=== PATIENT | male | born 1950 | race Caucasian/White ===

== ENCOUNTER 2023-06-23 07:16 | Outpatient (CLI) | payer BC, SELFPAY ==
--- NOTE | ~2023-06-23 | CT_ITS ---
EXAMINATION: CT pelvis wo con DATE: 06/23/2023 07:45 INDICATION: Erectile dysfunction TECHNIQUE: Computed tomography (CT) of the pelvis was performed without intravenous contrast. The dos e-length product was 860.29 mGy-cm. Automated exposure control and iterative reconstruction technique were employed. COMPARISON: CT dated 06/18/2017 FINDINGS: There is mild mesenteric stranding of the upper abdomen, nonspecific. There are changes of previous ventral abdominal wall hernia repair. There is a penile prosthetic device present within the pop in the right inguinal region. There is a left spigelian hernia containing fat. Colonic diverticu losis without evidence for diverticulitis. No significant vascular abnormality. No lymphadenopathy. N o abnormal pelvic masses or fluid collections. There is moderate osteoarthritis of the hips. IMPRESSION: 1. Interval placement of penile prosthetic device. Prosthetic pump present in the right inguinal leon on. 2: Left lower abdominal wall spigelian hernia containing fat. Reviewed, dictated and finalized at location A. IMPRESSION: 1. Interval placement of penile prosthetic device. Prosthetic pump present in t he right inguinal region. 2: Left lower abdominal wall spigelian hernia containing fat.
== END 2023-06-23 07:17 | disposition home or self-care (01) ==
PROVIDERS: PCP Family Medicine; Visit Provider Urology
DX: N52.31 Erectile dysfunction following radical prostatectomy (principal)
CPT/HCPCS: 72192

== ENCOUNTER 2023-09-01 08:10 | Outpatient (CLI) | payer BC, SELFPAY ==
--- NOTE | 2023-09-01 08:27 | ECG_ITS ---
Measurements Intervals [place] Rate: 73 P: 1 ME: 165 QRS: -25 QRSD: 99 T: 18 QT: 363 QTc: 402 Interpretive Statements SINUS RHYTHM BORDERLINE LEFT AXIS DEVIATION [QRS AXIS < -20] NO PREVIOUS ECG AVAILABLE FOR COMPARISON Electronically Signed On 09-01-2023 12:36:06 CDT by Amira Chaves M.D.
== END 2023-09-01 08:11 | disposition home or self-care (01) ==
LOC: ANHSURGERY 08:16
PROVIDERS: PCP Family Medicine; Visit Provider Urology
DX: T83.420A Displacement of implanted penile prosthesis, initial encounter (principal); E78.00 Pure hypercholesterolemia, unspecified; Z01.818 Encounter for other preprocedural examination
CPT/HCPCS: 87086; 93005

== ENCOUNTER 2023-09-09 16:44 | Observation (INO) | payer BC, SELFPAY ==
[2023-08-28 14:37] VITALS: BMI 37.0
--- NOTE | 2023-08-28 15:12 | PC.NURSE ---
Report to the Outpatient Waiting Room, entrance under the green pavilion located off [facility], at time __10:00AM on date ___09/09/23____. Planned Procedure Time: ___12:00PM . Time changes happen often and if your time is changed the preop area will call you the afternoon before. - You and your visitor will be asked to self-screen and do not enter if you have any COVID symptoms. - A mask is optional within the hospital at this time. Patients may have clear liquids (water, carbonated beverages, clear teas, apple juice) until 3 hours prior to surgery with a maximum of 20 ounces. - No food from midnight until time of surgery. Take the following medications with a SIP of water the morning of surgery: ____CLONAZEPAM, DULOXETINE, GABAPENTIN, ROPINIROLE, ALBUTEROL INHALER NEEDED DO NOT STOP ANY OF YOUR OTHER PRESCRIPTION MEDICATIONS PRIOR TO SURGERY ?EXCEPT THE FOLLOWING Medications to discontinue per physician __HOLD PLAVIX PER DR ESCOBAR-PATIENT CONFIRMING WITH OFFICE. HOLD ALL VITAMINS/SUPPLEMENTS 3 DAYS PRE-OP PER ANESTHESIA- LAST DOSE 09/05/23. Please no make-up, nail cape verdean, hairspray, perfume, deodorant, or body powder the day of surgery. No jewelry (including any body piercings) or valuables the day of surgery, leave them at home. Please take a shower or bath the night before, or the morning of, surgery with an antibacterial soap. Wear comfortable, loose fitting clothing. - Jewelry must be removed prior to entering the operating room. Rings and piercings that are not removed may be cut off. - The hospital will not accept responsibility for valuables. - Please leave all valuables, including medications, at home the day of surgery. If you are going home after surgery, a licensed limo driver must drive you home. - NO public transportation without another adult if you receive anesthesia. - We recommend that an adult stay with you for 24 hours following discharge. - We also recommend that you do not drive, make important decision, drink alcoholic beverages, or take any drugs that were not prescribed by your health care provider for at least 24 hours after your discharge time. Follow any additional instructions given to you from your surgeon. If you or anyone in your household have experienced Covid symptoms in the past week, please notify your surgeon or the nurse liaison at the phone number below for possible testing. Telephone instructions given to __PATIENT and asked if any additional questions and then verbalized understanding. Patient advised to call surgeon office or pre surgery nurse liaison [phone] if any additional questions.
--- NOTE | 2023-09-08 14:22 | WPDANESEPPF ---
Anes - Initial Pre Proc Eval Procedure: Operation Date: 09/09/23 13:00 Proposed Procedures p Removal Penile Prosthesis - Darby Lawson MD Date/Time: 09/08/23 14:22 Surgeon: Darby aLwson MD Pre Op Diagnosis: scrotal pain, displacement of implant Patient Data Age: 72 Gender: M Height: 1.71 m Weight: 109 kg Allergies Allergy/AdvReac Type Severity Reaction Status Date / Time Penicillins Allergy Severe STOPPED Verified 08/28/23 14:20 BREATHING Sulfa (Sulfonamide Allergy Mild HIVES Verified 08/28/23 14:20 Antibiotics) morphine AdvReac Other Verified 09/09/23 11:28 Home Medications Medication Instructions Recorded Confirmed Type albuterol sulfate 90 mcg/actuation 2 puff inhalation Q4-6H PRN 08/28/23 09/09/23 History aerosol inhaler Shortness Of Breath Or Wheezing atorvastatin 20 mg tablet 20 mg PO DAILY 08/28/23 09/09/23 History calcium polycarbophil 625 mg 625 mg PO HS 08/28/23 09/09/23 History tablet (FiberCon) clonazepam 0.5 mg tablet 0.5 mg PO BID 08/28/23 09/09/23 History clopidogrel 75 mg tablet 75 mg PO DAILY 08/28/23 09/09/23 History cyanocobalamin (vitamin B-12) 1,000 mcg IM MONTHLY 08/28/23 09/09/23 History 1,000 mcg/mL injection solution duloxetine 30 mg capsule,delayed 30 mg PO BID 08/28/23 09/09/23 History release fenofibrate 160 mg tablet 160 mg PO DAILY 08/28/23 09/09/23 History fluticasone propionate 50 2 spray intranasal BID PRN Nasal 08/28/23 09/09/23 History mcg/actuation nasal Congestion spray,suspension gabapentin 600 mg tablet 600 mg PO BID 08/28/23 09/09/23 History geriatric multivitamin-min 1 tablet PO DAILY 08/28/23 09/09/23 History icosapent ethyl 1 gram capsule 2 g PO BID 08/28/23 09/09/23 History omega 6-nxs-lne-fish oil 1,000 mg 1 cap PO DAILY 08/28/23 09/09/23 History (120 mg-180 mg) capsule (Fish Oil) pantoprazole 40 mg tablet,delayed 40 mg PO DAILY 08/28/23 09/09/23 History release quetiapine 50 mg tablet 50 mg PO HS 08/28/23 09/09/23 History ropinirole 1 mg tablet 1 mg PO BID 08/28/23 09/09/23 History Patient hx anesthesia problems: none Family hx anesthesia problems: none Results Review: All pre-operative results and documents have been reviewed as part of the pre-operative evaluation. PMFSH Social History Social History Smoking packs per day: 2 Smoking cigarettes per day: 40.0 Years smoked: 4 Smoking pack-years: 8.00 Smoking status: Former smoker Tobacco type: cigarettes Smoking end date: 05/30/74 Alcohol intake: current Substance use: never Living arrangements: with family Additional living arrangements comments: Spiritual care concerns: No Anes - Eval Final PreProcedure Day of Procedure 09/08/23 14:22 Patient weight: obese Heart: regular rate and rhythm Lungs: clear to auscultation Airway: Mallampati scale class II Neurological: alert and oriented Last oral intake: >/= 8 hours ASA classification: III Emergent: no Anesthetic plan: proceed Anesthesia type and monitoring: general LMA and standard monitoring Results Review: All pre-operative results and documents have been reviewed as part of the pre-operative evaluation. Informed Consent: The patient's anesthetic plan and its attendant risks and benefits were discussed with the patient/family/POA. Questions were solicited and answers provided to the satisfaction of the patient/family/POA.
[2023-09-09] VITALS (12 sets, daily range): BP systolic 88–123; BP diastolic 54–68; PULSE 4–76; RESP 12–18; TEMP 36.2–36.5; O2SAT 95–100; BMI 37.4
[2023-09-09] MEDS: LACTATED RINGERS 1,000 ML 30 ML IV CONT (12:00)
--- NOTE | 2023-09-09 12:33 | WPDHPUPDATE1 ---
History and Physical Update Update Date/Time: 09/09/23 12:33 History and Physical has been reviewed, including an updated exam of the patient. There are NO changes in the patient's condition. Risks, benefits, and alternatives have been discussed and questions answered. Patient agrees to proceed with procedure.
[2023-09-09] MEDS: ACETAMINOPHEN 500 MG TABLET 1000 MG PO (12:57)
[2023-09-09] MEDS: GENTAMICIN SULFATE INJ 420 MG in DEXTROSE 5% 100 ML 110.5 MG IVPB (13:04)
[2023-09-09] MEDS: ceFAZolin SODIUM 1 GM VIAL (13:52)
--- NOTE | 2023-09-09 14:43 | W.PM.PROC2 ---
Procedure Note - Detailed Date of Procedure 09/09/23 Pre-op Diagnosis scrotal pain from penile implant Post-op Diagnosis Same Procedure Performed Removal of penile prosthesis cylinders and pump. Washout with antibiotic irrigant Surgeon Darby Lawson MD Anesthesia General Description of Procedure Informed consent was obtained. Patient in the operating. He was given preoperative IV antibiotics. He was induced anesthesia. He was shaved he was prepped with Betadine followed by Hibiclens. Drapes were placed. A 16F Bundy catheter was inserted with return of clear urine. A 3cm midline scrotal incision was performed and we carefully performed dissection with great care not to injure the urethra. The penile prosthesis pump was brought up to the incision and we then followed the tubing from the pump to each of the corporal bodies. We then opened each corpora over the insertion of the tubing, with a 1.5 to 2 cm corporotomy on side. Stay sutures with 2-0 PDS were placed through the corpora. At this point the cylinders and pump were removed. We cut the tubing to the penile prosthesis reservoir as high in the right inguinal canal as possible. At this point we irrigated copiously into the corporal bodies and into the scrotum with antibiotic irrigant. Once irrigation was performed we closed corpora with the pre-placed PDS sutures. We again irrigated copiously and hemostasis was achieved. We then closed the scrotum in transverse followed by longitudinal layers of 3-0 Vicryl suture. A deep dermal layer of 3-0 Vicryl suture and a 3-0 Monocryl horizontal mattress skin closure. At this point glue was placed over the incision a scrotal support was placed the patient was awakened and taken to recovery in stable condition. The patient will be admitted to the hospital overnight for observation with IV antibiotics. Plan discharge and void trial morning Pathology Yes Complications No immediate complications Condition Stable Disposition PACU
[2023-09-09] MEDS: fentaNYL CITRATE INJ (*CRX) 100 MCG/2 ML VIAL 25 MCG IV PUSH ×5 (14:50→15:26)
--- NOTE | 2023-09-09 16:18 | ADMGEN ---
This patient, Toan Ascencio, was admitted to -. Patient/family oriented to hospital policies and general routines including ID bracelet, bed and alarms, visiting hours, pain management, procedures, bathroom and other care routines, personal items, smoking policy, room service/diet, and visiting hours. Information on how to activate the Rapid Response Team has been discussed. Patient/Family are encouraged to report perceived risks to care and to ask questions if they do not understand what they are told or what they should do.
[2023-09-09] MEDS: OMEGA 3 POLYUNSAT FATTY ACIDS 1 GM CAP 2 GM PO (17:32)
[2023-09-09] MEDS: HYDROcodone/acetaminophen (*CRX) 5-325 MG TABLET 1 TAB PO ×2 (17:32→21:29)
[2023-09-09] MEDS: GABAPENTIN 300 MG CAPSULE 600 MG PO (17:32)
[2023-09-09] MEDS: DOCUSATE SODIUM 100 MG CAPSULE PO (17:33)
[2023-09-09] MEDS: DULoxetine HCL 30 MG CAPSULE.DR PO (17:33)
[2023-09-09] MEDS: rOPINIRole HCL 1 MG TABLET PO (17:33)
[2023-09-09] MEDS: clonazePAM (*CRX) 0.5 MG TABLET PO (17:33)
[2023-09-09] MEDS: DEXTROSE 5%/0.45% SOD CHL 1,000 ML 125 ML IV CONT (17:33)
[2023-09-09 17:43] LABS: Hematocrit 42.4 % (42.0-52.0); Mean Corpuscular HGB Conc 30.7 g/dl (32-36); Mean Corpuscular Hemoglobin 31.1 pg (26-34); Mean Corpuscular Volume 101.4 fl (80-100); Mean Platelet Volume 11.4 fl (7.4-10.4); Platelet Count Result 194 k/mm3 (150-375); Red Blood Count 4.18 M/mm3 (4.6-6.20); Red Cell Distribution Width 13.9 % (11.5-14.5); White Blood Count 6.1 K/mm3 (4.5-10.0)
[2023-09-09] MEDS: QUEtiapine FUMARATE 25 MG TABLET 50 MG PO (21:28)
[2023-09-10] MEDS: VANCOMYCIN 1,000 MG/NS 250 ML 1,000 MG/250 ML BAG 250 MG IVPB ×2 (00:19→12:01)
[2023-09-10] MEDS: DEXTROSE 5%/0.45% SOD CHL 1,000 ML 125 ML IV CONT ×2 (00:20→09:26)
[2023-09-10 01:32] VITALS: BP 101/56; PULSE 62; RESP 14; TEMP 36.3; O2SAT 97
[2023-09-10] MEDS: HYDROcodone/acetaminophen (*CRX) 5-325 MG TABLET 1 TAB PO ×2 (01:39→09:00)
[2023-09-10 05:41] VITALS: BP 99/62; PULSE 48; RESP 12; TEMP 36.1; O2SAT 99
[2023-09-10 06:20] LABS: Anion Gap 0 mmol/L (8-16); Blood Urea Nitrogen 10 mg/dL (9-20); Calcium 8.1 mg/dL (8.4-10.2); Carbon Dioxide 33 mmol/L (22-30); Chloride 104 mmol/L (98-107); Estimated CRCL calculation 85 ml/min; Estimated Glomerular Filt Rate > 60; Glucose 124 mg/dL (65-110); Potassium 3.9 mmol/L (3.4-5.0); Sodium 137 mmol/L (137-145)
[2023-09-10 08:00] VITALS: O2SAT 96
[2023-09-10] MEDS: OMEGA 3 POLYUNSAT FATTY ACIDS 1 GM CAP 2 GM PO (08:29)
[2023-09-10] MEDS: ATORVASTATIN 20 MG TABLET PO (08:29)
[2023-09-10] MEDS: DULoxetine HCL 30 MG CAPSULE.DR PO (08:29)
[2023-09-10] MEDS: DOCUSATE SODIUM 100 MG CAPSULE PO (08:29)
[2023-09-10] MEDS: MULTIVITAMINS /C LUTEIN (CENTRUM SILVER) TABLET *BKC 1 TAB PO (08:29)
[2023-09-10] MEDS: GABAPENTIN 300 MG CAPSULE 600 MG PO (08:29)
[2023-09-10] MEDS: levoFLOXacin 500 MG TABLET PO (08:29)
[2023-09-10] MEDS: clonazePAM (*CRX) 0.5 MG TABLET PO (08:30)
[2023-09-10] MEDS: PANTOPRAZOLE 40 MG TABLET PO (08:30)
[2023-09-10 08:31] VITALS: BP 124/60; PULSE 62
[2023-09-10] MEDS: rOPINIRole HCL 1 MG TABLET PO (08:34)
[2023-09-10] MEDS: ENOXAPARIN 30 MG/0.3 ML SYRINGE SUB-Q (08:35)
--- NOTE | 2023-09-10 08:46 | PC.NURSE ---
called to clarify if ok to pull mar pt stated hx of urinary retention call MD Lawson
--- NOTE | 2023-09-10 09:28 | PC.NURSE ---
mar pulled starting voiding trail
[2023-09-10 10:06] VITALS: BP 104/64; PULSE 65; RESP 17; TEMP 36.4; O2SAT 96
--- NOTE | 2023-09-10 10:12 | WPDANESPN ---
Anes - Prog Note Post-Op Date/Time: 09/10/23 10:12 Cardiovascular status: normal Respiratory status: normal Airway patency: baseline Mental status: baseline Post-Op hydration status: normal Vital Signs: Last Vital Signs Temp 97.5 F L 09/10/23 10:06 Pulse 65 09/10/23 10:06 Resp 17 09/10/23 10:06 BP 104/64 09/10/23 10:06 Pulse Ox 96 09/10/23 10:06 O2 Del Method Room Air 09/09/23 15:50 O2 Flow Rate 6 09/09/23 14:45 Pain Score (VAS): 0/10 I/O: Intake & Output 09/09/23 09/10/23 09/10/23 23:59 07:59 15:59 Intake Total 240 1250 1240 Balance 240 1250 1240 Laboratory Tests 09/09/23 17:05 09/10/23 05:57 09/09/23 09/10/23 17:05 05:57 WBC 6.1 RBC 4.18 L Hgb 13.0 L Hct 42.4 MCV 101.4 H MCH 31.1 MCHC 30.7 L RDW 13.9 Plt Count 194 MPV 11.4 H Sodium 137 Potassium 3.9 Chloride 104 Carbon Dioxide 33 H Anion Gap 0 L BUN 10 Creatinine 0.80 Estim Creat Clear Calc 85 Estimated GFR > 60 Glucose 124 H Calcium 8.1 L Post-procedural complaints: none Patient Feedback: Patient satisfied with anesthetic care.
--- NOTE | 2023-09-10 10:29 | PC.NURSE ---
pt voided informing RN INTERNSH[employer] Rose from urology. Inquiring if pt needs abts before discharge and for discharge orders.
--- NOTE | 2023-09-10 11:15 | PC.NURSE ---
pt void 200 ml after mar removed called YOKASTA Alberts to informed pt inquiring about d/c orders was informed by YOKASTA Alberts that ok to d/c after voiding.
--- NOTE | 2023-09-10 12:16 | PC.NURSE ---
spoke with YOKASTA Alberts, patient will receive abt's and then discharge home with self care. Pt to f/u output with urology on 09/30/23. Discharge paperwork explained to pt.
[2023-09-10 12:57] VITALS: BP 103/53; PULSE 70; RESP 16; TEMP 36.4; O2SAT 99
[2023-09-10] MEDS: GENTAMICIN 80MG/SOD CHL 50 ML 80 MG/50 ML BAG 100 MG IVPB (13:02)
--- NOTE | 2023-09-10 15:54 | WPDUROPN2 ---
Progress Note: A&P Assessment and Plan (1) Complication of implanted penile prosthesis: Code(s): T83.9XXA - Unspecified complication of genitourinary prosthetic device, implant and graft, initial encounter Status: Acute Assessment and Plan: Ok to discharge pt. home. Continue scrotal support. Subjective Subjective Date/Time Seen: 09/10/23 15:54 Post Op day: 1 Interval history: Removal of penile prosthesis cylinders and pump, washout with antibiotic irrigation. Pt. doing very well today. He has minimal pain, catheter out, pt. urinating, passing flatus. Tolerating diet and activity well. Review of Systems Cardiovascular: Cardiovascular: Denies chest pain Respiratory: Respiratory: Reports no additional respiratory complaints Gastrointestinal: Gastrointestinal: Denies abdominal pain, Denies nausea and Denies vomiting Genitourinary: Genitourinary: Denies hematuria, Denies dysuria, Denies flank pain, Denies urinary frequency, Denies urinary hesitancy, Denies urinary incontinence and Denies urinary urgency Exam Const: General: cooperative and comfortable Resp: Effort & Inspection: normal respiratory effort Cardio: Rate: regular rate GI: GI Palp: Yes Soft to palpation and No Tenderness to palpation present (GI) : General: Yes no CVA tenderness Meatus: meatus normal Scrotum: no ecchymosis, not edematous and other (incision is well approximated, no drainage present) Objective Data Vital Signs Vital Signs: Vital Signs - 24 hr 09/09/23 16:10 09/09/23 16:25 09/09/23 16:55 Temperature 97.5 F L 97.5 F L 97.4 F L Pulse Rate 61 46 L 64 Respiratory Rate 18 18 18 Blood Pressure 123/57 L 117/59 L 95/55 L Pulse Oximetry 95 100 97 Oxygen Delivery 09/09/23 17:55 09/09/23 20:53 09/10/23 01:32 Temperature 97.5 F L 97.1 F L 97.4 F L Pulse Rate 76 73 62 Respiratory Rate 18 13 14 Blood Pressure 104/59 L 100/55 L 101/56 L Pulse Oximetry 95 98 97 Oxygen Delivery 09/10/23 05:41 09/10/23 08:31 09/10/23 10:06 Temperature 96.9 F L 97.5 F L Pulse Rate 48 L 62 65 Respiratory Rate 12 17 Blood Pressure 99/62 L 124/60 104/64 Pulse Oximetry 99 96 Oxygen Delivery 09/10/23 08:00 09/10/23 12:57 Temperature 97.5 F L Pulse Rate 70 Respiratory Rate 16 Blood Pressure 103/53 L Pulse Oximetry 96 99 Oxygen Delivery Room Air Intake/Output Intake/Output: Intake & Output 09/07/23 09/08/23 09/09/23 09/10/23 23:59 23:59 23:59 23:59 Intake Total 440 3030 Output Total 30 1400 Balance 410 1630 Labs Labs: Laboratory Results - last 24 hr 09/09/23 09/10/23 17:05 05:57 WBC 6.1 RBC 4.18 L Hgb 13.0 L Hct 42.4 MCV 101.4 H MCH 31.1 MCHC 30.7 L RDW 13.9 Plt Count 194 MPV 11.4 H Sodium 137 Potassium 3.9 Chloride 104 Carbon Dioxide 33 H Anion Gap 0 L BUN 10 Creatinine 0.80 Estim Creat Clear Calc 85 Estimated GFR > 60 Glucose 124 H Calcium 8.1 L
--- NOTE | 2023-10-07 15:43 | PM.DS ---
DS: Admitting Diagnosis Discharge Date 09/10/23 Admitting Diagnosis Erectile Dysfunction DS: Discharge Diagnosis Discharge Diagnosis Plan Erectile Dysfunction DS: Summary Hospital Course Reason for hospitalization: Removal of penile prosthesis cylinders and pump.? Washout with antibiotic irrigant Hospital Course: The patient underwent a Removal of penile prosthesis cylinders and pump.? Washout with antibiotic irrigant with Dr. Lawson on 09/09/23. He tolerated the procedure well, went to recovery in stable condition and to the floor for further observation overnight. His catheter was removed the morning of 09/10/23 and he was able to urinate, he was tolerating the pain and incisions are well approximated without signs of infection. The patient will be discharged home with activity as tolerated, no lifting >20lbs, normal diet, resume home medications. Time spent discussing smoking cessation with patient: 3 to 10 minutes Status at Discharge Functional status at discharge: independent ambulation Time Spent with Patient Time attestation: Total time spent providing and/or coordinating discharge services: Time spent: Greater than 30 minutes Exam Const: General: cooperative and comfortable Resp: Effort & Inspection: normal respiratory effort Cardio: Rate: regular rate GI: GI Palp: Yes Soft to palpation and No Tenderness to palpation present (GI) : General: Yes no CVA tenderness Urinary Catheter: Urinary Catheter: patent and draining and urine clear Extrem: Right lower extremity: no edema Left lower extremity: no edema DS: Data Data Completed and Pending Completed studies during hospitalization: Pending at discharge 09/09/23 13:56 Surgical [PTH] Routine Discharge Plan Discharge Attending physician on discharge: Darby Lawson Consulting providers: Jhoana Alberts; Miles Johnson; Manny Rivera Discharging Clinician: Jhoana Alberts Anticipated Discharge Date/Time: 09/10/23 11:32 Patient Disposition: Home, Self-Care Activity: may shower Diet: as tolerated Wound Care Instructions: incision open to air Discharge Instructions: Follow up with Dr. Lawson on September 30, 2023 at 8:45am in [place] at the office. Do not immerse in water with your incision such as swimming pools, hot tubs, garcia, bath tubs etc. Do not lift >20lbs until your follow up visit. Keep incision clean and dry. Keep scrotal support on and keep penis in upright position. Call the office or go to the ER if you develop bloody urine, a fever of >101, incision concerns or severe abdominal pain. Patient Instructions: Antibiotic Form Stand Alone Forms: General Discharge Information Follow-up/Referrals: Darby Lawson MD [Physician] - Discharge Medications: New docusate sodium 100 mg Capsule 100 mg PO BID 5 Days Qty: 10 0RF ciprofloxacin HCl 500 mg tablet 500 mg PO Q12H Qty: 14 0RF Continued gabapentin 600 mg tablet 600 mg PO BID atorvastatin 20 mg tablet 20 mg PO DAILY ropinirole 1 mg tablet 1 mg PO BID clonazepam 0.5 mg tablet 0.5 mg PO BID pantoprazole 40 mg tablet,delayed release (DR/EC) 40 mg PO DAILY cyanocobalamin (vitamin B-12) 1,000 mcg/mL Solution 1,000 mcg IM MONTHLY calcium polycarbophil [FiberCon] 625 mg Tablet 625 mg PO HS fluticasone propionate 50 mcg/actuation spray,suspension 2 spray INTRANASAL BID PRN (Reason: Nasal Congestion) geriatric multivitamin-min Tablet 1 tablet PO DAILY duloxetine 30 mg capsule,delayed release(DR/EC) 30 mg PO BID fenofibrate 160 mg tablet 160 mg PO DAILY quetiapine 50 mg tablet 50 mg PO HS omega 0-ohl-kjh-fish oil [Fish Oil] 1,000 mg (120 mg-180 mg) Capsule 1 cap PO DAILY icosapent ethyl 1 gram capsule 2 g PO BID albuterol sulfate 90 mcg/actuation HFA aerosol inhaler 2 puff INHALATION Q4-6H PRN (Reason: Shortness Of [place]
== END 2023-09-10 13:37 | disposition home or self-care (01) ==
LOC: ANH2MED 16:52
PROVIDERS: Admitting Provider Urology; PCP Family Medicine; Visit Provider Urology
PROC: (CPT 54406; principal; 2023-09-09 13:00)
DX: T83.420A Displacement of implanted penile prosthesis, initial encounter (principal); E78.00 Pure hypercholesterolemia, unspecified; Z87.891 Personal history of nicotine dependence; F10.90 Alcohol use, unspecified, uncomplicated; E66.9 Obesity, unspecified; Z68.37 Body mass index [BMI] 37.0-37.9, adult
CPT/HCPCS: 54406; 36415; 80048; 85027; 88300; A9270; G0378; G0379; J0690; J1100; J1580; J1650; J2250; J2405; J2704; J3010; J3370; J7030; J7120